=== PATIENT | female | born 1970 | race Caucasian/White ===

== ENCOUNTER 2017-12-21 11:05 | Emergency (ER) | payer MEDICAID ==
[~2017-12-21] VITALS: Ht 152.4 cm; Wt 57.6 kg
[~2017-12-21 11:05] MED LIST: ALPR.25 PO; ALPR.5 PO; AMOX500 PO; CODBUTACEC PO; HYDACE5 PO; HYDPAM50 PO; NAPR500 PO; OMEP10ER PO; OMEP20ER; OXYC20ER; PARO20 PO; RANI150; RANI150 PO; RXCYCL10 PO; RXOXYACE PO; RXPROACE PO; VENL75ER PO; Zithromax250 MG PO
[2017-12-21] MEDS ORDERED: TRAZ100 PO (11:22)
[2017-12-21] MEDS ORDERED: PRED10 PO (11:22)
[2017-12-21 12:11] LABS: BASOPHILS ABSOLUTE AUTO 0.02 K/mm3 (0.00-0.23); BASOPHILS PERCENT AUTO 0 % (0-2); EOSINOPHILS ABSOLUTE AUTO 0.03 K/mm3 (0.00-0.68); EOSINOPHILS PERCENT AUTO 0 % (0-6); Hematocrit 39.9 % (33.0-51.0); IMMATURE GRAN ABSOLUTE AUTO 0.05 K/mm3 (0.00-0.10); IMMATURE GRAN PERCENT AUTO 1 % (0-1); LYMPHOCYTES ABSOLUTE AUTO 2.45 K/mm3 (0.84-5.20); LYMPHOCYTES PERCENT AUTO 23 % (21-46); MONOCYTES ABSOLUTE AUTO 0.59 K/mm3 (0.16-1.47); MONOCYTES PERCENT AUTO 6 % (4-13); Mean Corpuscular HGB 32.6 pg (26.0-34.0); Mean Corpuscular HGB Conc 35.1 g/dL (31.5-36.5); Mean Corpuscular Volume 93 fL (80-100); Mean Platelet Volume 10.5 fL (9.1-12.4); NEUTROPHILS ABSOLUTE AUTO 7.46 K/mm3 (1.96-9.15); NEUTROPHILS PERCENT AUTO 70 % (41-73); Platelet Count 278 K/mm3 (150-400); RDW Coefficient Variation 11.9 % (11.7-14.2); Red Blood Cell Count 4.29 M/mm3 (3.80-5.20)
[2017-12-21 12:31] LABS: Alanine Aminotransfer (ALT/SGP 19 U/L (12-78); Albumin, Blood 3.2 g/dL (3.4-5.0); Albumin/Globulin Ratio 0.9 (0.8-1.8); Alk Phos 65 U/L (50-136); Anion Gap 10 mmol/L (6-16); Aspartate Aminotrans (AST/SGOT 23 U/L (12-37); Bilirubin, Total 0.3 mg/dL (0.1-1.0); Blood Urea Nitrogen 10 mg/dL (8-24); Bun/Creatinine Ratio 15.8 (12.0-20.0); CO2, Blood 23 mmol/L (21-32); Calcium, Blood 8.6 mg/dL (8.5-10.1); Chloride, Blood 108 mmol/L (98-108); Creatinine, Blood 0.63 mg/dL (0.40-1.00); Globulin, Blood 3.6 g/dL (2.2-4.0); Glomerular Filtration Rate >60 (60-); Glucose, Blood 102 mg/dL (70-99); Potassium, Blood 3.3 mmol/L (3.5-5.5); Sodium, Blood 141 mmol/L (136-145); Total Protein, Blood 6.8 g/dL (6.4-8.2); Troponin I <0.015 ng/mL (0.000-0.040)
[2017-12-21] MEDS ORDERED: Zofran4 MG PO (13:08)
== END 2017-12-21 13:21 | disposition home or self-care (01) ==
LOC: ER 11:05
PROVIDERS: Physician Assistant
DX: A08.4 Viral intestinal infection, unspecified (principal); L50.9 Urticaria, unspecified; K21.9 Gastro-esophageal reflux disease without esophagitis; F32.9 Major depressive disorder, single episode, unspecified; F17.210 Nicotine dependence, cigarettes, uncomplicated
CPT/HCPCS: 36415; 80053; 84484; 85025; 93005; 93010; 96361; 96374; 96375; 99283-25; J1200; J2405; J2930; J3490; J7030

== ENCOUNTER 2020-06-04 10:30 | Emergency (ER) | payer OTHER ==
[~2020-06-04] VITALS: Ht 152.4 cm; Wt 56.7 kg
[~2020-06-04 10:30] MED LIST changes: +PRED10 PO; +TRAZ100 PO; +Zofran4 MG PO
[2020-06-04 11:08] LABS: BASOPHILS ABSOLUTE AUTO 0.04 K/mm3 (0.00-0.23); BASOPHILS PERCENT AUTO 1 % (0-2); EOSINOPHILS ABSOLUTE AUTO 0.12 K/mm3 (0.00-0.68); EOSINOPHILS PERCENT AUTO 1 % (0-6); Hematocrit 40.2 % (33.0-51.0); IMMATURE GRAN ABSOLUTE AUTO 0.03 K/mm3 (0.00-0.10); IMMATURE GRAN PERCENT AUTO 0 % (0-1); LYMPHOCYTES ABSOLUTE AUTO 1.77 K/mm3 (0.84-5.20); LYMPHOCYTES PERCENT AUTO 21 % (21-46); MONOCYTES ABSOLUTE AUTO 0.87 K/mm3 (0.16-1.47); MONOCYTES PERCENT AUTO 10 % (4-13); Mean Corpuscular HGB 32.6 pg (26.0-34.0); Mean Corpuscular HGB Conc 34.8 g/dL (31.5-36.5); Mean Corpuscular Volume 94 fL (80-100); Mean Platelet Volume 10.1 fL (9.1-12.4); NEUTROPHILS PERCENT AUTO 67 % (41-73); Platelet Count 247 K/mm3 (150-400); RDW Coefficient Variation 12.5 % (11.7-14.2); White Blood Cell Count 8.63 K/mm3 (4.00-11.30)
[2020-06-04 11:25] LABS: Alanine Aminotransfer (ALT/SGP 31 U/L (12-78); Albumin, Blood 3.3 g/dL (3.4-5.0); Albumin/Globulin Ratio 0.9 (0.8-1.8); Alk Phos 73 U/L (50-136); Anion Gap 6 mmol/L (6-16); Aspartate Aminotrans (AST/SGOT 41 U/L (12-37); Bilirubin, Total 0.5 mg/dL (0.1-1.0); Blood Urea Nitrogen 10 mg/dL (8-24); Bun/Creatinine Ratio 17.2 (12.0-20.0); CO2, Blood 25 mmol/L (21-32); Calcium, Blood 9.2 mg/dL (8.5-10.1); Chloride, Blood 109 mmol/L (98-108); Creatinine, Blood 0.58 mg/dL (0.40-1.00); Globulin, Blood 3.7 g/dL (2.2-4.0); Glomerular Filtration Rate >60 (60-); Glucose, Blood 100 mg/dL (70-99); Potassium, Blood 3.6 mmol/L (3.5-5.5); Sodium, Blood 140 mmol/L (136-145)
[2020-06-04 13:35] LABS: Source, Urine Clean Catch
[2020-06-04 13:40] LABS: Appearance, Urine Hazy (Clear); Bilirubin, Urine Neg (Neg); Blood, Urine 5+ (Neg); Color, Urine Yellow (P-Yellow); Glucose Qualitative, Urine Neg (Neg); Ketones, Urine 1+ (Neg); Leukocyte Esterase, Urine 1+ (Neg); Nitrite, Urine Neg (Neg); Protein, Urine 2+ (Neg); Urobilinogen, Urine NORM (Normal)
[2020-06-04 13:50] LABS: Red Blood Cells, Urine TNTC /hpf (0-2); Squamous Epithelial Cells Few /hpf (Few); White Blood Cells, Urine 0-2 /hpf (0-5)
[2020-06-04 13:51] LABS: Bacteria Not Seen /hpf; U Amphetamine Screen Not Detected; U Barbituate Screen Not Detected; U Benzodiazapine Screen Not Detected; U Buprenorphine Screen Not Detected; U Cannabinoids Screen Not Detected; U Cocaine Screen Not Detected; U Methadone Screen Not Detected; U Methamphetamine Screen Not Detected; U Opiates Screen Not Detected; U Oxycodone Screen Not Detected; U Phencyclidine Screen Not Detected; U Propoxyphene Screen Not Detected
[2020-06-04] MEDS ORDERED: IBUP400 PO (15:17)
== END 2020-06-04 15:27 | disposition home or self-care (01) ==
LOC: ER 10:30
PROVIDERS: Emergency Medicine
DX: N20.0 Calculus of kidney (principal); M51.37 Other intervertebral disc degeneration, lumbosacral region; K21.9 Gastro-esophageal reflux disease without esophagitis; F17.210 Nicotine dependence, cigarettes, uncomplicated
CPT/HCPCS: 36415; 74177; 80053; 81001; 83690; 85025; 87086; 96374-59; 99284-25; J2405; J7120; Q9967

== ENCOUNTER 2023-10-18 07:19 | Day surgery (SDC) | payer BC ==
[~2023-10-18] VITALS: Ht 152.4 cm; Wt 52.1 kg
[~2023-10-18 07:19] MED LIST changes: +Balanced Salt Epinephrine Irrigation Solution 500 mL IR SCH; +IBUP400 PO; +Lidocaine HCl/Pf 1% 5 ML VIAL XX SCH; +Moxifloxacin HCL 0.5 MG/0.1 ML 0.4MLSYR RIGHTEYE SCH; +NS 500 ML IV ONE; +PHENYLEPHRINE\\TROPICAMIDE\\TETRACAINE OPHTHALMIC DILATING SOLN RIGHTEYE PRN; +Povidone-Iodine 450 DROP/30 ML Solution RIGHTEYE SCH; +Triamcinolone Inj Susp 40 MG / ML 1ML Vial INJ SCH
[2023-10-18] MEDS ORDERED: Triamcinolone Inj Susp 40 MG / ML 1ML Vial ONE (07:22)
[2023-10-18] MEDS ORDERED: Lidocaine HCl/Pf 1% 5 ML VIAL ONE (07:26)
[2023-10-18] MEDS ORDERED: VENLAFAXINE HC225 MG PO (07:38)
[2023-10-18] MEDS ORDERED: FAMO20 PO (07:39)
[2023-10-18] MEDS ORDERED: ANORO ELLIPTA1 EAC1 IH (07:39)
[2023-10-18] MEDS ORDERED: NS 500 ML IV ONE (07:48)
--- NOTE | 2023-10-18 07:48 | NUR ---
10/18/[address] AT [address] AT 0751
[2023-10-18] MEDS ORDERED: FentaNYL Citrate 50 MCG/ML 2 ML Injection ONE (07:58)
[2023-10-18] MEDS ORDERED: Midazolam HCl 1MG / ML 2ML Vial ONE (07:59)
[2023-10-18] MEDS ORDERED: Tetracaine HCl 0.5% Opth Soln 15 ml RIGHTEYE ONE (08:29)
[2023-10-18 08:54] VITALS: BP 114/82
--- NOTE | 2023-10-18 09:07 | NUR ---
10/18/23 0907 RADAMES GARNICA STEP DOWN VS IN PACU SCREEN
== END 2023-10-18 09:07 | disposition home or self-care (01) ==
LOC: ORSCSDS 07:19
PROVIDERS: Ophthalmology
PROC: 08RJ3JZ Replacement of Right Lens with Synthetic Substitute, Percutaneous Approach (ICD-10-PCS; principal; 2023-10-18 08:30)
DX: H25.811 Combined forms of age-related cataract, right eye (principal); J44.9 Chronic obstructive pulmonary disease, unspecified; K21.9 Gastro-esophageal reflux disease without esophagitis; Z79.899 Other long term (current) drug therapy; F17.210 Nicotine dependence, cigarettes, uncomplicated
CPT/HCPCS: J2001; J2250; J3010; J3301; J7040; V2632

== ENCOUNTER 2023-10-26 10:50 | Day surgery (SDC) | payer BC ==
[~2023-10-26] VITALS: Ht 152.4 cm; Wt 51.2 kg
[~2023-10-26 10:50] MED LIST changes: +ANORO ELLIPTA1 EAC1 IH; +FAMO20 PO; +Moxifloxacin HCL 0.5 MG/0.1 ML 0.4MLSYR LEFTEYE SCH; -Moxifloxacin HCL 0.5 MG/0.1 ML 0.4MLSYR RIGHTEYE SCH; +PHENYLEPHRINE\\TROPICAMIDE\\TETRACAINE OPHTHALMIC DILATING SOLN LEFTEYE PRN; -PHENYLEPHRINE\\TROPICAMIDE\\TETRACAINE OPHTHALMIC DILATING SOLN RIGHTEYE PRN; +Povidone-Iodine 450 DROP/30 ML Solution LEFTEYE SCH; -Povidone-Iodine 450 DROP/30 ML Solution RIGHTEYE SCH; +Triamcinolone Inj Susp 40 MG / ML 1ML Vial ONE; +VENLAFAXINE HC225 MG PO
--- NOTE | 2023-10-26 11:19 | NUR ---
10/26/23 1119 JOE XIAO: 1119 PLEDGIT: 1120
[2023-10-26] MEDS ORDERED: NS 500 ML IV ONE (11:33)
[2023-10-26] MEDS ORDERED: Midazolam HCl 1MG / ML 2ML Vial ONE (12:13)
[2023-10-26] MEDS ORDERED: FentaNYL Citrate 50 MCG/ML 2 ML Injection ONE (12:23)
[2023-10-26 12:47] VITALS: BP 125/37
--- NOTE | 2023-10-26 12:48 | NUR ---
10/26/23 1248 GeorgeStephy Glass DENIES PAIN IN HER LEFT EYE. PT.C/O FEELING SOME STINGING, DIDN'T WANT ANY TYLENOL WHEN OFFERED. PT. DRINKING WATER & EATING STRING CHEESE.
== END 2023-10-26 12:52 | disposition home or self-care (01) ==
LOC: ORSCSDS 10:50
PROVIDERS: Ophthalmology
PROC: 08RK3JZ Replacement of Left Lens with Synthetic Substitute, Percutaneous Approach (ICD-10-PCS; principal; 2023-10-26 12:00)
DX: H25.812 Combined forms of age-related cataract, left eye (principal); Z96.1 Presence of intraocular lens; J44.9 Chronic obstructive pulmonary disease, unspecified; K21.9 Gastro-esophageal reflux disease without esophagitis; G62.9 Polyneuropathy, unspecified; R06.02 Shortness of breath; F17.210 Nicotine dependence, cigarettes, uncomplicated; Z79.899 Other long term (current) drug therapy
CPT/HCPCS: J2250; J3010; J3301; J7040; V2632

== ENCOUNTER → 2025-02-20 | Outpatient (CLI) | payer BC ==
[~2025-02-20] MED LIST changes: -Balanced Salt Epinephrine Irrigation Solution 500 mL IR SCH; -Lidocaine HCl/Pf 1% 5 ML VIAL XX SCH; -Moxifloxacin HCL 0.5 MG/0.1 ML 0.4MLSYR LEFTEYE SCH; -NS 500 ML IV ONE; -PHENYLEPHRINE\\TROPICAMIDE\\TETRACAINE OPHTHALMIC DILATING SOLN LEFTEYE PRN; -Povidone-Iodine 450 DROP/30 ML Solution LEFTEYE SCH; -Triamcinolone Inj Susp 40 MG / ML 1ML Vial INJ SCH; -Triamcinolone Inj Susp 40 MG / ML 1ML Vial ONE
[2025-02-20 14:58] LABS: BASOPHILS ABSOLUTE AUTO 0.09 K/mm3 (0.00-0.23); BASOPHILS PERCENT AUTO 1 % (0-2); EOSINOPHILS ABSOLUTE AUTO 0.17 K/mm3 (0.00-0.68); EOSINOPHILS PERCENT AUTO 2 % (0-6); Hematocrit 38.7 % (33.0-51.0); Hemoglobin 13.2 g/dL (11.5-16.0); IMMATURE GRAN ABSOLUTE AUTO 0.02 K/mm3 (0.00-0.10); IMMATURE GRAN PERCENT AUTO 0 % (0-1); LYMPHOCYTES ABSOLUTE AUTO 1.83 K/mm3 (0.84-5.20); LYMPHOCYTES PERCENT AUTO 20 % (21-46); MONOCYTES ABSOLUTE AUTO 0.90 K/mm3 (0.16-1.47); MONOCYTES PERCENT AUTO 10 % (4-13); Mean Corpuscular HGB Conc 34.1 g/dL (31.5-36.5); Mean Corpuscular Volume 92 fL (80-100); NEUTROPHILS ABSOLUTE AUTO 6.01 K/mm3 (1.96-9.15); NEUTROPHILS PERCENT AUTO 67 % (41-73); NRBC ABSOLUTE 0.00 K/mm3 (0.00-0.02); NRBC Auto 0.0 /100 WBC (0.0-0.2); Platelet Count 274 K/mm3 (150-400); RDW Coefficient Variation 13.1 % (11.7-14.2); RDW Standard Deviation 43.7 fL (35.1-46.3)
[2025-02-20 15:25] LABS: Alanine Aminotransfer (ALT/SGP 18 U/L (12-78); Albumin, Blood 3.5 g/dL (3.4-5.0); Albumin/Globulin Ratio 1.1 (0.8-1.8); Anion Gap 7 mmol/L (3-11); Aspartate Aminotrans (AST/SGOT 13 U/L (12-37); Bilirubin, Total 0.3 mg/dL (0.1-1.0); Blood Urea Nitrogen 15 mg/dL (8-24); CHOL/HDL RATIO 5.3; CO2, Blood 25 mmol/L (21-32); Calcium, Blood 9.8 mg/dL (8.5-10.1); Chloride, Blood 110 mmol/L (98-108); Cholesterol 253 mg/dL (50-200); Creatinine, Blood 0.61 mg/dL (0.40-1.00); Globulin, Blood 3.3 g/dL (2.2-4.0); Glucose, Blood 102 mg/dL (70-99); HDL Cholesterol 48 mg/dL (>39); LDL/HDL RATIO 3.9; Low Density Lipoprotein Chol 188 mg/dL (0-110); Potassium, Blood 4.1 mmol/L (3.5-5.5); Sodium, Blood 138 mmol/L (136-145); Total Protein, Blood 6.8 g/dL (6.4-8.2); Triglycerides 84 mg/dL (30-160); Very Low Density Lipoprot Chol 16 mg/dL (6-32)
== END ==
LOC: LAB SHORT 12:36 → LAB 12:36
PROVIDERS: Student in an Organized Health Care Education/Training Program
DX: E78.5 Hyperlipidemia, unspecified (principal); J44.9 Chronic obstructive pulmonary disease, unspecified
CPT/HCPCS: 80053; 80061; 85025